=== PATIENT | male | born 1975 | race Caucasian/White ===

== ENCOUNTER 2017-12-02 14:50 | Outpatient (CLI) | payer OTHER | END 2017-12-02 14:51 | disposition home or self-care (01) | LOC: SC 14:50 | PROVIDERS: ATTEND Nurse Practitioner Family | DX: G47.10 Hypersomnia, unspecified (principal); R06.83 Snoring; G47.8 Other sleep disorders; E66.9 Obesity, unspecified; Z68.33 Body mass index [BMI] 33.0-33.9, adult | CPT/HCPCS: 99203; 99212 ==

== ENCOUNTER 2017-12-19 20:43 | Outpatient (CLI) | payer OTHER | END 2017-12-19 20:44 | disposition home or self-care (01) | LOC: SC 20:43 | PROVIDERS: ATTEND Internal Medicine Pulmonary Disease | DX: G47.33 Obstructive sleep apnea (adult) (pediatric) (principal) | CPT/HCPCS: 95810 ==

== ENCOUNTER 2017-12-23 10:06 | Outpatient (CLI) | payer OTHER | END 2017-12-23 10:07 | disposition home or self-care (01) | LOC: SC 10:06 | PROVIDERS: ATTEND Internal Medicine Pulmonary Disease | DX: G47.33 Obstructive sleep apnea (adult) (pediatric) (principal) | CPT/HCPCS: 99212; 99213 ==